=== PATIENT | female | born 1975 | race Caucasian/White ===

== ENCOUNTER 2018-12-11 17:50 | Emergency (ER) | payer BC, OTHER ==
[~2018-12-11] VITALS: Ht 160 cm; Wt 76.7 kg
[~2018-12-11 17:50] MED LIST: COLACE100 MG PO; CYMBALTA30 MG PO; HYDROCODONE-AP1 EAC6 PO; HYOSCYAMINE0.125 MG PO; PANTOPRAZOLE SO40 M1 PO; PARAGARD T 3801 EACH INTRAUTERI; PHENERGAN 25 MG25 M1 PO; XANAX 0.5 MG0.5 MG PO
[2018-12-11] MEDS ORDERED: LEXAPRO 10 MG T10 M2 PO (17:59)
[2018-12-11] MEDS ORDERED: WELLBUTRIN XL150 MG PO (17:59)
[2018-12-11] MEDS ORDERED: NEXIUM40 MG PO (17:59)
[2018-12-11 19:03] LABS: ABSOLUTE NEUTROPHILS 8.3 thou/uL (1.4-8.2); BASOPHILS 0.5 % (0.0-2.0); EOSINOPHILS 0.4 % (0.0-3.0); HEMATOCRIT 37.7 % (37.0-47.0); HEMOGLOBIN 12.9 gm/dL (12.0-15.0); LYMPHOCYTES 12.7 % (24.0-44.0); MCH 30.4 pg (26.0-34.0); MCHC 34.2 g/dL (28.0-37.0); MCV 88.8 fL (80.0-100.0); MONOCYTES 6.5 % (1.0-8.0); PLATELET COUNT 175 thou/uL (150-400); POLYS 79.9 % (36.0-66.0); RBC 4.24 mil/uL (4.20-5.00); RDW 12.9 % (10.5-14.5); WBC 10.4 thou/uL (4.0-11.0)
[2018-12-11 19:21] LABS: ALBUMIN 3.4 g/dL (3.4-5.0); CREATININE 0.8 mg/dL (0.6-1.0); POTASSIUM 4.4 mmol/L (3.5-5.1); TOTAL BILIRUBIN 0.7 mg/dL (<0.1-1.0); TOTAL PROTEIN 7.3 g/dL (6.4-8.2)
[2018-12-11 19:25] LABS: URINE BILIRUBIN NEGATIVE (Negative); URINE BLOOD NEGATIVE (Negative); URINE CLARITY CLEAR; URINE COLOR YELLOW; URINE GLUCOSE-RANDOM* NEGATIVE (Negative); URINE KETONES NEGATIVE (Negative); URINE LEUKOCYTES 2+ (Negative); URINE NITRITE NEGATIVE (Negative); URINE PROTEIN (DIPSTICK) NEGATIVE (Negative); URINE SPECIFIC GRAVITY <= 1.005 (1.005-1.035); URINE UROBILINOGEN 0.2 E.U./dl (0.2-1.0)
[2018-12-11 19:34] LABS: BACTERIA None Seen /HPF (None Seen); CASTS None Seen /LPF (None Seen); CRYSTALS None Seen /LPF (None Seen); SQUAMOUS 4-10 Moderate /LPF (0-3); URINE RBC None Seen /HPF (0-2); URINE WBC 6-15 Few /HPF (0-5)
[2018-12-11] MEDS ORDERED: DOXYCYCLINE 10100 MG PO (20:17)
[2018-12-11] MEDS ORDERED: NORCO 5-325 TA1 EAC1 PO (20:17)
[2018-12-11] MEDS ORDERED: ONDANSETRON HCL4 M2 PO (20:17)
[2018-12-11 22:20] VITALS: BP 117/64
== END 2018-12-11 22:20 | disposition short-term general hospital (02) ==
LOC: ER 17:50
PROVIDERS: Physician Assistant
DX: N70.93 Salpingitis and oophoritis, unspecified (principal); K21.9 Gastro-esophageal reflux disease without esophagitis; F32.9 Major depressive disorder, single episode, unspecified; F41.9 Anxiety disorder, unspecified; J45.909 Unspecified asthma, uncomplicated; Z87.891 Personal history of nicotine dependence; Z88.0 Allergy status to penicillin